=== PATIENT | male | born 1990 | race Caucasian/White ===

== ENCOUNTER → 2017-05-22 | Outpatient (CLI) | payer SELFPAY | LOC: RAD 14:01 | DX: M54.5 Low back pain (principal) ==

== ENCOUNTER 2018-07-07 22:47 | Emergency (ER) | payer BC ==
[2018-07-07] MEDS ORDERED: CEPHALEXIN500 M2 PO (23:30)
[2018-07-07 23:44] VITALS: BP 137/90
== END 2018-07-07 23:44 | disposition home or self-care (01) ==
LOC: ED 22:47
DX: S61.011A Laceration without foreign body of right thumb without damage to nail, initial encounter (principal); W25.XXXA Contact with sharp glass, initial encounter; Y93.G1 Activity, food preparation and clean up; Y92.000 Kitchen of unspecified non-institutional (private) residence as the place of occurrence of the external cause

== ENCOUNTER 2021-10-22 22:44 | Emergency (ER) | payer SELFPAY ==
[~2021-10-22] VITALS: Ht 182.9 cm; Wt 109.1 kg
[~2021-10-22 22:44] MED LIST: CEPHALEXIN500 M2 PO
[2021-10-22 23:36] LABS: BASO # 0.04 K/mm3 (0.02-0.10); EOS # 0.06 K/mm3 (0.04-0.40); EOS % 0.9 % (0.0-4.0); HEMATOCRIT 40.9 % (42.0-52.0); HEMOGLOBIN 13.9 g/dL (13.5-18.0); LYMPH# 1.07 K/mm3 (1.50-4.00); MEAN CELL VOLUME 88 fl (78-100); MEAN CORPUSCULAR HEMOGLOBIN 30 pg (27-31); MEAN CORPUSCULAR HGB CONC 34 g/dL (33-37); MEAN PLATELET VOLUME 9.8 fl (7.4-10.4); MONO # 0.77 K/mm3 (0.20-0.80); NEU # 4.71 K/mm3 (1.40-6.50); PLATELET COUNT 204 K/mm3 (130-400); RED BLOOD COUNT 4.67 M/mm3 (4.20-5.60); RED CELL DISTRIBUTION WIDTH 11.8 % (11.5-14.5); WHITE BLOOD COUNT 6.7 K/mm3 (4.8-10.8)
[2021-10-22 23:46] LABS: ALBUMIN 4.1 g/dL (3.5-5.0); POTASSIUM 4.4 mmol/L (3.5-5.1)
[2021-10-22 23:47] LABS: CALCIUM 9.6 mg/dL (8.3-10.5)
[2021-10-22 23:49] LABS: TOTAL PROTEIN 6.9 g/dL (6.4-8.3)
[2021-10-22 23:50] LABS: TOTAL BILIRUBIN 0.5 mg/dL (0.2-1.2)
[2021-10-23 00:36] VITALS: BP 124/75
== END 2021-10-23 00:36 | disposition home or self-care (01) ==
LOC: ED 22:44
PROVIDERS: Physician Assistant
DX: R05.9 Cough, unspecified (principal)
CPT/HCPCS: 90715; J0696

== ENCOUNTER 2021-10-29 23:03 | Emergency (ER) | payer SELFPAY ==
[~2021-10-29] VITALS: Ht 182.9 cm; Wt 109.1 kg
[2021-10-29 23:54] LABS: BASO # 0.06 K/mm3 (0.02-0.10); EOS # 0.11 K/mm3 (0.04-0.40); HEMATOCRIT 43.9 % (42.0-52.0); HEMOGLOBIN 14.5 g/dL (13.5-18.0); LYMPH# 1.62 K/mm3 (1.50-4.00); MEAN CELL VOLUME 90 fl (78-100); MEAN CORPUSCULAR HEMOGLOBIN 30 pg (27-31); MEAN CORPUSCULAR HGB CONC 33 g/dL (33-37); MEAN PLATELET VOLUME 9.1 fl (7.4-10.4); NEU # 3.08 K/mm3 (1.40-6.50); PLATELET COUNT 274 K/mm3 (130-400); RED BLOOD COUNT 4.88 M/mm3 (4.20-5.60); RED CELL DISTRIBUTION WIDTH 11.9 % (11.5-14.5); WHITE BLOOD COUNT 5.6 K/mm3 (4.8-10.8)
[2021-10-30 00:03] LABS: ALBUMIN 4.3 g/dL (3.5-5.0)
[2021-10-30 00:04] LABS: POTASSIUM 4.4 mmol/L (3.5-5.1)
[2021-10-30 00:06] LABS: TOTAL PROTEIN 7.2 g/dL (6.4-8.3)
[2021-10-30 00:08] LABS: TOTAL BILIRUBIN 0.4 mg/dL (0.2-1.2)
[2021-10-30] MEDS ORDERED: CLINDAMYCIN 300MG PO (00:16)
[2021-10-30 00:28] VITALS: BP 135/78
== END 2021-10-30 00:28 | disposition home or self-care (01) ==
LOC: ED 23:03
PROVIDERS: Physician Assistant
DX: S81.852A Open bite, left lower leg, initial encounter (principal); L03.116 Cellulitis of left lower limb; F17.210 Nicotine dependence, cigarettes, uncomplicated; W54.0XXA Bitten by dog, initial encounter
CPT/HCPCS: J0696

== ENCOUNTER 2021-10-31 20:28 | Outpatient (RCR) | payer SELFPAY ==
[2021-10-30 20:23] VITALS: BP 126/87
--- NOTE | 2021-10-30 20:33 | NUR ---
Orders to given 600 MG of Clindimycin PO now.
[~2021-10-31] VITALS: Ht 182.9 cm; Wt 109.1 kg
[~2021-10-31 20:28] MED LIST changes: +CLINDAMYCIN 300MG PO
[2021-10-31 20:45] VITALS: BP 119/77
[2021-10-31 21:05] VITALS: BP 125/80
--- NOTE | 2021-11-02 00:29 | NUR ---
Patient was a no show for his 11/01/21 dose of Rocephin.
--- NOTE | 2021-11-03 01:00 | NUR ---
Patient was a no show for the 2nd night in a row for his OP IM Rocephin due on 11/02/21 at 1999.
== END 2021-11-07 | disposition still patient (30) ==
LOC: AMSURD
DX: L03.116 Cellulitis of left lower limb (principal); W54.0XXA Bitten by dog, initial encounter
CPT/HCPCS: J0696

== ENCOUNTER 2022-11-15 23:46 | Emergency (ER) | payer SELFPAY ==
[~2022-11-15] VITALS: Ht 182.9 cm; Wt 114.5 kg
[~2022-11-15 23:46] MED LIST changes: +PANTOPRAZOLE SO40 MG PO
[2022-11-16 00:20] LABS: HEMATOCRIT 35.5 % (42.0-52.0); HEMOGLOBIN 9.4 g/dL (13.5-18.0); MEAN CELL VOLUME 62 fl (78-100); MEAN CORPUSCULAR HEMOGLOBIN 16 pg (27-31); MEAN CORPUSCULAR HGB CONC 27 g/dL (33-37); MEAN PLATELET VOLUME 9.2 fl (7.4-10.4); PLATELET COUNT 355 K/mm3 (130-400); RED BLOOD COUNT 5.75 M/mm3 (4.20-5.60); RED CELL DISTRIBUTION WIDTH 21.2 % (11.5-14.5); WHITE BLOOD COUNT 6.6 K/mm3 (4.8-10.8)
[2022-11-16 00:36] LABS: CALCIUM 10.9 mg/dL (8.3-10.5); POTASSIUM 4.5 mmol/L (3.5-5.1); TOTAL BILIRUBIN 0.3 mg/dL (0.2-1.2); TOTAL PROTEIN 8.2 g/dL (6.4-8.3)
[2022-11-16 00:47] LABS: LYMPHOCYTE 26 % (20-51); MONOCYTE 16 % (3-10); NEUTROPHILS 56 % (42-75)
[2022-11-16 00:48] LABS: OVALOCYTES 2+; SCHISTOCYTES 1+
[2022-11-16 00:52] LABS: HYPOCHROMIA 2+
[2022-11-16 03:56] LABS: URINE APPEARANCE HAZY; URINE BILIRUBIN NEGATIVE (NEGATIVE); URINE BLOOD NEGATIVE (NEGATIVE); URINE COLOR YELLOW; URINE GLUCOSE NEGATIVE (NEGATIVE); URINE KETONE NEGATIVE (NEGATIVE); URINE LEUKOCYTE ESTERASE TRACE (NEGATIVE); URINE NITRATE NEGATIVE (NEGATIVE); URINE PROTEIN(semi-quant) 2+ (NEGATIVE); URINE UROBILINOGEN NORMAL (NORMAL); URINE WBC 0-1 /hpf (0-3)
[2022-11-16 03:57] LABS: URINE MUCUS PRESENT (NOT PRESENT)
[2022-11-16] MEDS ORDERED: PANTOPRAZOLE SO40 MG PO (09:16)
[2022-11-16] MEDS ORDERED: METRONIDAZOLE500 M1 PO (09:16)
[2022-11-16] MEDS ORDERED: ZOFRAN ODT4 MG PO (09:16)
[2022-11-16 10:07] VITALS: BP 112/75
== END 2022-11-16 10:07 | disposition home or self-care (01) ==
LOC: ED 23:46
PROVIDERS: Family Medicine
DX: K21.9 Gastro-esophageal reflux disease without esophagitis (principal); A59.9 Trichomoniasis, unspecified; D64.9 Anemia, unspecified; K92.2 Gastrointestinal hemorrhage, unspecified
CPT/HCPCS: C9113; J2270; J2405; J3490; J7030